=== PATIENT | male | born 2000 | race Caucasian/White ===

== ENCOUNTER 2024-04-22 19:04 | Emergency (ER) | payer SELFPAY ==
[~2024-04-22] VITALS: Ht 180.3 cm; Wt 88.6 kg
[2024-04-22 19:15] VITALS: BP 143/91; TEMP 98.5
[2024-04-22] MEDS ORDERED: Fluorescein 1 MG STRIP OP ONE (21:15)
[2024-04-22] MEDS ORDERED: Tetracaine 0.5% Ophth Soln 4 ML BOTTLE OP ONE (21:15)
[2024-04-22] MEDS ORDERED: ILOTYCIN5 MG/GM OP (21:21)
[2024-04-22 21:40] VITALS: PULSE 89
== END 2024-04-22 21:56 | disposition home or self-care (01) ==
LOC: COL.ER 19:04
DX: H00.011 Hordeolum externum right upper eyelid (principal)